=== PATIENT | female | born 1995 | race Caucasian/White ===

== ENCOUNTER → 2022-08-11 | Outpatient (REF) | payer OTHER ==
[2022-08-12 19:16] LABS: MALB URINE SIEMENS 13.3 MG/L; MAU/CREAT RATIO 4.5 MCG/MG (0.0-30.0)
== END ==
LOC: M LAB REF 16:58
PROVIDERS: ATTEND Nurse Practitioner Family
DX: E10.65 Type 1 diabetes mellitus with hyperglycemia (principal)

== ENCOUNTER 2024-12-14 02:44 | Emergency (ER) | payer OTHER ==
[~2024-12-14] VITALS: Ht 157.5 cm; Wt 90.7 kg
[2024-12-14] MEDS: NS (Normal Saline) 0.9% 1,000 ML IV ONE (03:45)
[2024-12-14 04:43] LABS: VENOUS BASE EXCESS -1.9 (-2.0-2.0); VENOUS HCO3 22.5 MMOL/L (23.0-27.0); VENOUS O2 SATURATION 60.4 % (60.0-80.0); VENOUS PARTIAL PRESSURE CO2 37.6 mmHg (38.0-50.0); VENOUS PARTIAL PRESSURE O2 30.6 mmHg (30.0-50.0); VENOUS PH 7.395 UNITS (7.330-7.430); VENOUS STANDARD HCO3 21.9 MMOL/L; VENOUS TOTAL CO2 23.7 MMOL/L (24.0-28.0)
[2024-12-14 04:47] LABS: BASO % 0.2 % (0.0-1.0); HEMATOCRIT 44.5 % (36.0-47.0); HEMOGLOBIN 14.7 g/dl (12.0-15.5); LYMPH # 0.5 10^3/uL (1.5-5.0); LYMPH % 2.8 % (24.0-44.0); MEAN CORPUSCULAR HEMOGLOBIN 29.9 pg (27.0-33.0); MEAN CORPUSCULAR VOLUME 90.4 fl (80.0-96.0); MONO # 0.5 10^3/uL (0.0-0.8); MONO % 2.7 % (2.0-8.0); NEUTROPHILS # 17.5 10^3/uL (1.5-8.5); NEUTROPHILS % 93.8 % (36.0-66.0); PLATELET COUNT, AUTOMATED 278 10^3/uL (150-450); RED BLOOD COUNT 4.92 10^6/uL (4.00-5.40); WHITE BLOOD COUNT 18.7 10^3/uL (4.0-10.0)
[2024-12-14] MEDS: PROMETHAZINE 25MG/ML 1ML VIAL IV ONE (05:02)
[2024-12-14 05:15] LABS: LIPASE 19 U/L (12-53)
[2024-12-14 05:17] LABS: ACETONE/KETONE 0.94 MMOL/L (0.02-0.27)
[2024-12-14 05:18] LABS: ALKALINE PHOSPHATASE 72 U/L (35-104); ALT/SGPT 17 U/L (7.0-40); AST/SGOT 14 U/L (<34); BILIRUBIN,DIRECT 0.3 MG/DL (<0.4); BILIRUBIN,TOTAL 1.1 MG/DL (0.3-1.2); BLOOD UREA NITROGEN 22 MG/DL (9-23); CALCIUM LEVEL 9.5 MG/DL (8.5-10.1); CARBON DIOXIDE LEVEL 25 MMOL/L (20-31); CHLORIDE LEVEL 106 MMOL/L (98-107); CREATININE FOR GFR 0.97 MG/DL (0.55-1.30); GLOMERULAR FILTRATION RATE > 60.0 (>60); GLUCOSE, FASTING 126 MG/DL (60-100); POTASSIUM SERUM 4.1 MMOL/L (3.5-5.1); SODIUM LEVEL 140 MMOL/L (136-145); TOTAL PROTEIN 7.8 G/DL (5.7-8.2)
[2024-12-14 05:21] LABS: OSMOLALITY SERUM 304 MOSM/KG (275-295)
[2024-12-14] MEDS: ONDANSETRON 4MG 2ML VIAL IV ONE (07:05)
[2024-12-14] MEDS ORDERED: INSUH10VL (09:20)
[2024-12-14] MEDS ORDERED: LANTINJ4 (09:20)
[2024-12-14] MEDS ORDERED: NOVOINJ3 (09:20)
[2024-12-14] MEDS ORDERED: GLUC1AUT2 (09:20)
[2024-12-14] MEDS ORDERED: [UNRECOGNIZED DRUG - CODE] (09:20)
[2024-12-14] MEDS ORDERED: PROM25SU3 PR (09:28)
[2024-12-14] MEDS ORDERED: PROM25TA12 PO (09:28)
[2024-12-14 09:36] VITALS: BP 114/57; TEMP 99; O2SAT 96
== END 2024-12-14 09:51 | disposition home or self-care (01) ==
LOC: M ED 02:44
DX: A08.39 Other viral enteritis (principal); E10.9 Type 1 diabetes mellitus without complications; G43.909 Migraine, unspecified, not intractable, without status migrainosus; Z20.9 Contact with and (suspected) exposure to unspecified communicable disease; Z88.8 Allergy status to other drugs, medicaments and biological substances
CPT/HCPCS: 80048; 80076; 82010; 82803; 83605; 83690; 83930; 85025; 93041; 96361; 96374; 96375; 99285; J2405; J2550